=== PATIENT | male | born 1985 | race Caucasian/White ===

== ENCOUNTER 2020-02-09 10:39 | Emergency (ER) | payer OTHER ==
[~2020-02-09] VITALS: Ht 165 cm; Wt 79.5 kg
--- NOTE | 2020-02-09 11:30 | ED Lower Extremity ---
General Chief Complaint: Lower Extremity Stated Complaint: LEFT KNEE PAIN/SWELLING Nursing Triage Note: TO ED PER W/C HAS SWOLLEN KNEE HERE BECAUSE HE THINKS IT NEEDS DRAINED AND WITH INJECTION IN KNEE. HAS IT DONE [address] JONES. Nursing Sepsis Screen: No Definite Risk (AIDAN ELY APRN) History of Present Illness Date Seen by Provider: Feb 09, 2020 Time Seen by Provider: 11:28 Initial Comments This is a 34 yo male who presented to the ED via POV with c/o of left knee swelling/pain x 3 days. States he was on a Medrol Dosepak and ran out , and by Sunday his knee started swelling. States he saw Dr. Jones 3 weeks ago and had his right knee drained and injected with steroids. Reports no issues with his left knee since procedure. Denies fevers, chills, cough, shortness of breath, nausea, vomiting, abdominal pain. No redness or heat reported to left knee. Pain/Injury Location: left knee Modifying Factors: Worse With Movement; Improves With Rest (AIDAN ELY APRN) Allergies and Home Medications Allergies Coded Allergies: No Known Drug Allergies (Unverified , 02/09/20) Patient Home Medication List Home Medication List Reviewed: Yes (AIDAN ELY APRN) Review of Systems Constitutional: no symptoms reported EENTM: no symptoms reported Respiratory: no symptoms reported Cardiovascular: no symptoms reported Gastrointestinal: no symptoms reported Genitourinary: no symptoms reported Musculoskeletal: joint swelling (left knee swelling) Skin: no symptoms reported Psychiatric/Neurological: No Symptoms Reported (AIDAN ELY APRN) Past Rjizdne-Tizefu-Uqsbjk Hx Patient Social History Alcohol Use: Denies Use Recreational Drug Use: No Smoking Status: Never a Smoker Recent Foreign Travel: No Contact w/Someone Who Travel: No Recent Infectious Disease Expo: No (AIDAN ELY APRN) Physical Exam Vital Signs Vital Signs - First Documented 02/09/20 02/09/20 10:57 14:49 Temp 37.8 Pulse 119 Resp 18 B/P (MAP) 113/74 (87) Pulse Ox 99 O2 Delivery Room Air (ANGELINA MARTE MD) Vital Signs Capillary Refill : Less Than 3 Seconds (AIDAN ELY APRN) Height, Weight, BMI Height: '" Weight: lbs. oz. kg; 29.00 BMI Method: General Appearance: WD/WN, no apparent distress HEENT: PERRL/EOMI, normal ENT inspection Neck: full range of motion, normal inspection Cardiovascular: regular rate, rhythm, no murmur Respiratory: lungs clear, normal breath sounds, no respiratory distress Hips: bilateral hip non-tender, bilateral hip normal inspection, bilateral hip normal range of motion, bilateral hip no evidence of injury Legs: bilateral leg non-tender, bilateral leg normal inspection, bilateral leg normal range of motion, bilateral leg no evidence of injury Knees: right knee non-tender, right knee normal inspection, right knee normal range of motion, right knee no evidence of injury; left knee joint effusion, left knee soft tissue tenderness, left knee swelling Ankles: bilateral ankle non-tender, bilateral ankle normal inspection, bilateral ankle normal range of motion, bilateral ankle no evidence of injury Neurologic/Tendon: normal sensation, normal motor functions, normal tendon functions Neurologic/Psychiatric: no motor/sensory deficits, alert, normal mood/affect, oriented x 3 Skin: normal color, warm/dry; No rash; other (no erythema noted to left knee) (AIDAN ELY APRN) Procedures/Interventions Progress Left knee aspiration A large, tense, tender left knee effusion was identified. Risks and benefits of aspiration were discussed with the patient. He verbally consents to the procedure. Skin was cleaned and prepped with Betadine. Local anesthetic with a lidocaine injection was administered. The joint capsule was entered with an 18- gauge needle from a lateral superior approach. 110 mL of yellow synovial fluid was aspirated and sent to lab. There were no complications. Patient tolerated the procedure well and had relief after aspiration. 4 mg of dexamethasone was injected after completion of aspiration. (ANGELINA MARTE MD) Progress/Results/Core Measures Results/Orders Lab Results Laboratory Tests Test 02/09/20 13:35 02/09/20 13:42 Range/Units Body Fluid Source SYNOVIAL Body Fluid Color YELLOW Body Fluid Appearance SLT CLDY Body Fluid WBC 4840 /uL Body Fluid RBC 300 /uL Body Fluid Polynuclear WBCs 84 % Body Fluid Mononuclear WBCs 14 % Body Fluid Lymphocytes 2 % Body Fluid Other Cells % White Blood Count 9.7 4.3-11.0 10^3/uL Red Blood Count 5.11 4.30-5.52 10^6/uL Hemoglobin 14.0 13.3-17.7 g/dL Hematocrit 44 40-54 % Mean Corpuscular Volume 85 80-99 fL Mean Corpuscular Hemoglobin 27 25-34 pg Mean Corpuscular Hemoglobin Concent 32 32-36 g/dL Red Cell Distribution Width 14.6 H 10.0-14.5 % Platelet Count 273 130-400 10^3/uL Mean Platelet Volume 9.0 9.0-12.2 fL Immature Granulocyte % (Auto) 1 % Neutrophils (%) (Auto) 72 42-75 % Lymphocytes (%) (Auto) 15 12-44 % Monocytes (%) (Auto) 10 0-12 % Eosinophils (%) (Auto) 2 0-10 % Basophils (%) (Auto) 0 0-10 % Neutrophils # (Auto) 7.0 1.8-7.8 10^3/uL Lymphocytes # (Auto) 1.4 1.0-4.0 10^3/uL Monocytes # (Auto) 1.0 0.0-1.0 10^3/uL Eosinophils # (Auto) 0.2 0.0-0.3 10^3/uL Basophils # (Auto) 0.0 0.0-0.1 10^3/uL Immature Granulocyte # (Auto) 0.1 0.0-0.1 10^3/uL Erythrocyte Sedimentation Rate 17 H 0-15 MM/HR Uric Acid 3.6 2.6-7.2 MG/DL C-Reactive Protein High Sensitivity 13.45 H 0.00-0.50 MG/DL Rheumatoid Factor <15 0-29 IU/mL Rheumatoid Factor Interpretation Negative Negative (ANGELINA MARTE MD) Micro Results Microbiology 02/09/20 Gram Stain - Final, Resulted 02/09/20 Body Fluid Culture - Preliminary, Resulted No growth (ANGELINA MARTE MD) Medications Given in ED (ANGELINA MARTE MD) Vital Signs/I&O 02/09/20 02/09/20 10:57 14:49 Temp 37.8 37.8 Pulse 119 100 Resp 18 18 B/P (MAP) 113/74 (87) 113/74 (87) Pulse Ox 99 O2 Delivery Room Air (ANGELINA MARTE MD) Blood Pressure Mean: 87 Progress Progress Note : Progress Note Reports history of chronic joint effusions, states he has had multiple workups and they have not been able to identify cause. States Dr. Jones recommended his primary care provider continue with joint aspirations. Risk and benefit of the aspirations discussed Dr. Maguire, which included bleeding and infection. Patient consented to procedure, which was performed by Dr. Maguire. Patient placed in supine position, knee was cleansed with alcohol and locally anesthetized with lidocaine 1%, 6 cc. set up for sterile procedure, superior aspect of left lateral knee cleansed with iodine, and knee was aspirated with sterile technique. Removed a total of 120cc clear yellow fluid. Sample sent to lab. Requested inj of steroids into joint as this appears to be the only intervention that helps. Injected Dexamethasone 4mg into joint Tolerated procedure well. Reported improvement of pain after joint aspiration. Knee wrapped with Ramirez bandage. Reviewed discharge plan of care and he is agreeable with plan. (AIDAN ELY POWER PRESS TENDER) Diagnostic Imaging Diagonstic Imaging: Xray Plain Films/CT/US/NM/MRI: knee Comments NAME: ADAM PARIS [facility] REC#: [id number] PT STATUS: REG ER : 1985 PHYSICIAN: AIDAN ELY POWER PRESS TENDER ADMIT DATE: 02/09/20/ER Signed Date of Exam:02/09/20 KNEE, LEFT, 3 VIEWS INDICATION: Left knee swelling AP, oblique, and lateral views of the left knee are obtained. No fracture or acute bony abnormality seen. There appears to be a large joint effusion in the suprapatellar recess. There are ill-defined areas of sclerosis in the distal femur, in the supracondylar region posterior, which may represent fibrous cortical defect. Consider either followup or comparison old films if available elsewhere. IMPRESSION: No acute fracture. Large suprasellar joint effusion. Ill-defined area of sclerosis in the distal femur may be a fibrous cortical defect, consider either followup or comparison to old films if available. Dictated by: Dictated on workstation # [id number] Dict: 02/09/20 1319 Trans: 02/09/20 9881 CVB [id number] Interpreted by: ROSANA ROA MD Electronically signed by: ROSANA ROA MD 02/09/20 1431 (AIDAN ELY APRN) Departure Impression Primary Impression: Knee effusion, left Disposition: 01 HOME, SELF-CARE Condition: Improved Departure-Patient Inst. Decision time for Depature: 14:06 (AIDAN ELY APRN) Referrals: NO,LOCAL PHYSICIAN (PCP/Family) Primary Care Physician Patient Instructions: Swollen Joints Add. Discharge Instructions: Plan: 1. Discharge home. 2. May take Tylenol or Ibuprofen as needed for pain per package instructions. 3. Use ice 20 minutes at a time as needed for pain. 4. Follow up with your primary care provider this week. 5. Return for any new or concerning symptoms: signs of infection, fever, redness, swelling. All discharge instructions reviewed with patient and/or family. Voiced u nderstanding. AIDAN ELY APRN Feb 09, 2020 11:30 ANGELINA MARTE MD Feb 09, 2020 14:34
[2020-02-09] MEDS ORDERED: LIDOCAINE 1% INJ 20 ML 20 ML VIAL INJ ONE (12:45)
--- NOTE | 2020-02-09 13:23 | Diagnostic Imaging Report ---
INDICATION: Left knee swelling AP, oblique, and lateral views of the left knee are obtained. No fracture or acute bony abnormality seen. There appears to be a large joint effusion in the suprapatellar recess. There are ill-defined areas of sclerosis in the distal femur, in the supracondylar region posterior, which may represent fibrous cortical defect. Consider either followup or comparison old films if available elsewhere. IMPRESSION: No acute fracture. Large suprasellar joint effusion. Ill-defined area of sclerosis in the distal femur may be a fibrous cortical defect, consider either followup or comparison to old films if available. Dictated by: Dictated on workstation # [id number]
[2020-02-09 13:52] LABS: BASOPHILS % (AUTO) 0 % (0-10); EOSINOPHILS # (AUTO) 0.2 10^3/uL (0.0-0.3); EOSINOPHILS % (AUTO) 2 % (0-10); HEMATOCRIT 44 % (40-54); LYMPHOCYTES # (AUTO) 1.4 10^3/uL (1.0-4.0); LYMPHOCYTES % (AUTO) 15 % (12-44); MEAN CORPUSCULAR HEMOGLOBIN 27 pg (25-34); MEAN CORPUSCULAR HGB CONC 32 g/dL (32-36); MEAN CORPUSCULAR VOLUME 85 fL (80-99); MONOCYTES % (AUTO) 10 % (0-12); NEUTROPHILS % (AUTO) 72 % (42-75); PLATELET COUNT 273 10^3/uL (130-400); WHITE BLOOD COUNT 9.7 10^3/uL (4.3-11.0)
--- NOTE | 2020-02-09 13:59 | NUR ---
KNEE ASPIRATION DONE BY Serafin ELY APRN WITH DECADRON INJECTION
[2020-02-09 14:33] LABS: URIC ACID 3.6 MG/DL (2.6-7.2)
[2020-02-09 14:49] VITALS: BP 113/74
[2020-02-09 15:08] LABS: BODY FLUID APPEARENCE SLT CLDY; BODY FLUID COLOR YELLOW; BODY FLUID RBC COUNT 300 /uL; BODY FLUID SOURCE SYNOVIAL; BODY FLUID WBC TOTAL COUNT 4840 /uL; LYMPHOCYTES,BODY FLUID 2 %
== END 2020-02-09 14:49 | disposition home or self-care (01) ==
LOC: ER 10:43
DX: M25.462 Effusion, left knee (principal)
CPT/HCPCS: 36415; 73562; 84550; 85025; 85652; 86141; 86431; 87070; 87205; 89051